=== PATIENT | female | born 1995 | race Caucasian/White ===

== ENCOUNTER 2019-06-19 12:05 | Emergency (ER) | payer OTHER ==
[~2019-06-19] VITALS: Ht 157.5 cm; Wt 46.7 kg
[2019-06-19 12:36] VITALS: Ht 157.5 cm; Wt 46.7 kg
[2019-06-19 16:13] VITALS: BP 103/74
== END 2019-06-19 16:13 | disposition home or self-care (01) ==
LOC: ED 12:05
DX: L25.1 Unspecified contact dermatitis due to drugs in contact with skin (principal)
CPT/HCPCS: J1200; J7512